=== PATIENT | female | born 1970 | race Caucasian/White ===

== ENCOUNTER → 2017-11-30 | Outpatient (CLI) | payer OTHER ==
[2017-11-30 16:21] LABS: Protein, Urine Quantitative 99.2 mg/dL (0.0-11.9)
== END ==
LOC: OLS 13:02 → LAB SHORT 13:02
PROVIDERS: Internal Medicine
DX: R31.9 Hematuria, unspecified (principal)
CPT/HCPCS: 81050; 82570; 84156